=== PATIENT | female | born 1970 | race Hispanic/Latino ===

== ENCOUNTER 2019-04-20 09:59 | Day surgery (SDC) | payer OTHER ==
[2019-04-17 13:49] LABS: Urine Appearance CLEAR; Urine Bilirubin NEGATIVE (NEG); Urine Blood NEGATIVE (NEG); Urine Color YELLOW; Urine Glucose NEGATIVE (NEG); Urine Protein NEGATIVE (NEG); Urine Specific Gravity >=1.030 (1.005-1.030)
[2019-04-17 13:55] LABS: Urine Microscopic Reflex NO UMIC
[2019-04-17 13:57] LABS: Absolute Lymphocytes (CBC) 2.8 K/uL (0.7-4.9); Basophils % 0.5 % (0-1.3); Hematocrit 38.6 % (36.0-45.0); Lymphocytes % 41.5 % (15.3-44.8); MPV 9.5 fL (7.6-11.3); RBC Red Blood Cell Count 4.01 M/uL (3.86-4.86)
[2019-04-17 15:03] LABS: Blood Morphology Comment NOT SEEN (NOT SEEN); Platelet Estimate ADEQ
[2019-04-20 10:15] LABS: Specific Gravity 1.025 (1.005-1.030)
[2019-04-20] MEDS ORDERED: Ringers Lactate 1,000 ML IV ONE ×3 (10:22→16:02)
[2019-04-20] MEDS ORDERED: SCOPOLAMINE HYDROBROMIDE PATCH TD ONE (10:22)
[2019-04-20] MEDS: CEFAZOLIN/SWI 2gm 2 GM/20 ML SYR ONE ×2 (10:58→12:00)
[2019-04-20] MEDS ORDERED: PROPOFOL 200 MG/20 ML VIAL IV ONE (11:11)
[2019-04-20] MEDS ORDERED: FENTANYL CITR 100 MCG/2 ML ONE ×2 (11:11→14:12)
[2019-04-20] MEDS ORDERED: VECURONIUM 10 MG/VIAL IV ONE (11:12)
[2019-04-20] MEDS ORDERED: NS 0.9% VIAL 10 ML ONE ×3 (11:12→14:12)
[2019-04-20] MEDS ORDERED: MIDAZOLAM HCL 2 MG/2 ML INJ ONE (11:12)
[2019-04-20] MEDS ORDERED: LIDOCAINE 2% MPF 5 ML VIAL ONE (11:12)
[2019-04-20] MEDS ORDERED: ONDANSETRON 4 MG/2 ML VIAL ONE (11:18)
[2019-04-20] MEDS ORDERED: BUPIVACAINE 0.25% PF 30 ML VIAL ONE (11:52)
[2019-04-20] MEDS ORDERED: dexAMETHasone 10 MG/ML VIAL ONE (12:28)
[2019-04-20] MEDS ORDERED: MORPHINE 10 MG/ML VIAL ONE (14:12)
[2019-04-20] MEDS ORDERED: KETOROLAC 30 MG/ML INJ ONE (14:48)
[2019-04-20] MEDS ORDERED: GLYCOPYRROLATE 0.2 MG/ML SYR ONE (14:49)
[2019-04-20] MEDS ORDERED: NEOSTIGMINE 1 MG/ML -10 ML VIAL ONE (14:49)
[2019-04-20 15:45] VITALS: O2SAT 97
[2019-04-20] MEDS ORDERED: HYDROCODONE/APAP 5/325 MG TAB ONE (17:09)
[2019-04-20 17:43] VITALS: BP 127/76; TEMP 98.8
--- NOTE | 2019-04-22 05:46 | OP ---
Date of Procedure: 04/20/2019 Surgeon: Lizzie Diop MD Real Estate Professional: Hope Hudson. Preoperative Diagnoses: Menorrhagia, pelvic pain, and right ovarian cyst. Postoperative Diagnoses: Menorrhagia, pelvic pain, right ovarian cyst, and endometriosis. Procedures Performed: Total laparoscopic hysterectomy, bilateral salpingo-oophorectomy, endometriosi s excision, right ureterolysis, cystoscopy. Anesthesia: General endotracheal. Estimated Blood Loss: Minimal 60 mL. Specimens: Right lateral wall periureteric endometriosis, extensive left lateral wall endometriosis near the uterosacral included with the uterine specimen, right 4 cm ovarian cyst, scar adhes ions, no evidence of any tubal dilatation or perforation with foreign body. Her uterus was removed in its entirety and retrieved through the vagina. The Essure devices came wit h the uterine specimen. The distal parts of the tubes were removed separately along with the ovaries and all retrieved through the vagina. Cystoscopy showed strong ureteric jets from both ureteric orifices. No evidence of any trauma to the bladder. The ureter did not appear to have any electrical, mechanical, or thermal injury to it afte r the dissection and ureterolysis. Indications For Procedure: Patient is a 49-year-old lady referred to me by Dr. Gibson for heavy pe riods. She had normal monthly periods until November of 2018. Since then, there has been prolonged bleed ing, spotting for 12 days, and then moderate bleeding for 20 days. In December, she was seen by Dr. Ritchie salgado. Labs and CAT scan were ordered, but patient had not done her CT due to insurance issues. She was treated with Sprintec. Bleeding had stopped. Lasted from January 11 to January 30. Eight days of mod erate flow and then 4 days of heavy flow. Ten plus super tampons per day when the period was heavy a nd there was severe suprapubic pain radiating to right lower back. No history of cyst or fibroids in the past. Patient has surgical history significant for x2, Essure for tubal occlusion for permanent control. On examination, uterus had decreased mobility, size is about 6-8 weeks, and question that it could be adhered to the anterior abdominal wall. Discussed the workup for menorrha madisyn. Her hemoglobin was already done and it was 12.6 with low mean corpuscular hemoglobin level. Th e TSH was 2.0 and FSH was not seen. She could be perimenopausal given her age. Plan was to continue her oral contraceptives. Transvaginal ultrasound was to be done, and sampling of the endometrium to rule out atypia or malignancy was discussed with the patient. She can either just observe without a ny further treatment or proceed with an ablation if there was no pathology. Continuing oral contrace ptives was discussed. Plan was to rule out adnexal masses. Pain was mostly in the right lower quadr ant, which has improved. Due to her overweight status, discussed about the increased risk of Pap and endometrial cancer, so she was scheduled for an ultrasound and then an endometrial sampling procedur e. Her ultrasound showed a fibroid, the largest one 1.8 cm. Both ovaries were well visualized. The right ovary had 4.1 cm simple adnexal mass. Endometrial lining was 9 mm. Given her bleeding histor y, I made sure that hemoglobin was checked, it was 13 g. The urine was negative. Endometrial sampli ng was performed. Endometrial curettings were negative for atypia or malignancy. This was consisten t with secretory endometrium. Then, we discussed about the options with the patient. The patient sa id that she was considering a hysterectomy with removal of the cyst. Discussed about the options of an endometrial ablation and observation since she was having some perimenopausal symptoms in the form of hot flashes. She wanted to proceed with a hysterectomy. Then, recommended recommend cystectomy of the right ovarian mass at the time of ablation. Also discussed removal of bilateral tubes. We di scussed about the contraception and Essure was in place. Oral contraceptives were not needed for thi s patient. If bleeding was to be addressed, then plan was to stop her oral contraceptives. At this time, patient decided removal of Essure if surgery was being done in the form of removal of tubes. 4 cm simple cyst with low risk of malignancy was discussed with the patient. If we were not going to proceed with any surgical options after she thinks, plan was to repeat a 3-month ultrasound. After the patient came back for a decision for surgery, plan was to perform a total laparoscopic hyst erectomy, bilateral salpingectomy, and then removal of the right ovarian mass and possible removal of the right ovary. If there was any indication for removal of both tubes and ovaries, that would be d one as part of the procedure to prevent further recurrent pain or bleeding or surgery. All these wer e discussed with the patient. She had intermittent leakage when she was drinking water and denied we aring pads so there was no reason to do anything about it and then constipation was an intermittent s ymptom, nothing to do about that either. Her FSH level was 5.2, so not close to menopause. Discusse d about removal of the right ovary for sure. The cystectomy cannot be performed with adequate amount of ovarian tissue left. For the excessive periods, talked about the hysterectomy versus ablation, t he benefits and risks of each procedure; and once the patient understood the benefits and risks and n eed for a laparoscopic cystectomy and possible salpingectomy, she decided to proceed with hysterectom y with removal of all these. At this time right before this appointment, we received a letter from [facility] for Essure that her Essure coils have to be preserved and returned to the att orney's office. This is a relatively new development in the care of this patient. She was consented for this procedure to treat her bleeding and pain. The primary goal of this visit and the treatment procedure was not removal of Essure coils. This was an adjunct procedure as hysterectomy was alread y being done since the patient has consented for bilateral salpingectomy for risk reduction of ovaria n cancer and also the presence of pelvic pain. She requested that the coils be preserved for her. After consenting the patient, discussion about bleeding, infection, injury to the bowel, bladder, ure ters was done. She was then consented and taken to the OR. In the preop, we discussed with the patient about the need for postoperative care and rest. All inst ructions on a printed out sheet were given to the patient at the preop appointment. All these were v erbally reviewed with the patient and her , and after consenting them for the procedure especi ally the patient, then she was rolled back. Description Of Procedure: 2 g of Ancef were given. She was placed in a supine fashion on the operat ing table. General anesthesia was given. She was placed in a dorsal lithotomy position. Pelvic exa m performed and consistent with previous exam, 6-8 weeks, anteflexed, right adnexal masses palpable. Abdomen, vulva, vagina, and perineum were prepped and draped in a sterile fashion. Neri was placed to drain the bladder and attached to cysto tubing for retrograde filling and then a large uterine man ipulator was introduced into the uterus, which was a new device that was on the shelf in place of the usual device used, which was the VCare. Once this area was draped after appropriate fixation, then 1 cm incision was made in the periumbilica l area. With the scalpel using the open laparoscopy technique, fascia was incised and tagged on each side with 0 Vicryl sutures. Once the fascia was found, it was opened up. She had an abdominoplasty done by Dr. Snider. This incision was opened up. 0 Vicryl tag sutures were placed on each side. Peritoneum was picked up and incised sharply with Metzenbaum scissors. S-retractors were placed. H asson was introduced. Site of entry was checked, unremarkable. Upper abdominal surfaces were visual ized. Liver appeared to be unremarkable. Omentum appeared to be unremarkable. Upper abdominal surf aces, no endometriosis. Patient was placed in Trendelenburg position. 10 mm suprapubic, 5 mm left l ower quadrant and right lower quadrant ports were placed after 0.25% Marcaine was injected to all sit es. After close inspection of the pelvic and peritoneal cavity, there was extensive endometriotic im plants on the right lateral wall, some on the left lateral wall close to the uterosacral ligament, bu t no other endometriosis was seen. Both tubes were well visualized. The right ovary had a large cys t, but appeared to be simple. Ovarian capsule appeared to be unremarkable. There were dense adhesio ns of the sigmoid colon to the left lateral wall. They were stringy, but dense all the way starting at the level of the uterosacral all along the posteromedial aspect of the pelvic sidewall in relation to the ureter all the way to the level of the pelvic brim. The adhesions of the omentum and sigmoid colon were to the tube on the left side as well as to the sidewall below the level of the natural at tachment of the sigmoid colon. All these adhesions had to be taken down sharply. Then, adhesions to the lateral wall, posterior mesovarium were all taken down sharply. The bowel was from th e lateral wall. Then, the endometriosis was addressed on the right lateral aspect. Peritoneum was s cored all around the endometriotic implants. There was a large implant followed by a satellite of ot her implants surrounding it all along the mid to lower pelvic ureter. So, peritoneum was picked up a nd incised lateral and parallel to the ureter at the level of the pelvic brim between the external il iac and the ureter. The peritoneum was opened up sharply and with the help of the LigaSure by dissec ting from the underlying tissues and cutting all the way to the level of the ureteric tunnel. Once t his was done in the superolateral aspect, then dissection was performed across the peritoneum coverin g the ureter superficially down to the medial and inferior aspect of the ureter. Here, the dissectio n was carried all around the implant going all the way to the level of the base of the uterosacral li gament. Once all the endometriosis was isolated from the lateral aspects, then the ureter was dissec jayleen from the medial leaf of the broad ligament all the way it away. There was periureteri c implant that had to be dissected away from the lymph nodes along the internal iliac artery. At the level of the origin of the uterine artery, this dissection was carried on to pick out the base of th e endometriotic implants so that normal fat could be seen and then these were from the side wall. Then, they were from the ureter as best as I could except a 1.5 cm area right on top of it, but the rest of the implants were all removed from the distal and proximal parts of the urete r, and all the lateral implants were all taken down. Then, the peritoneum over the ureter was trimme d gently with the help of sharp dissection as well as LigaSure as needed and very barely. Once all t he implants were removed en bloc, these were handed out for permanent pathology and sent for patholog ical examination. Then, there were implants on the left side as well that were dissected and left in the uterine specimen as best as they could. Once all the implants were taken, close look at the tub es was done. The tubes appeared to be completely intact. No evidence of any perforation of the Essu re through the tubal lining. The lateral tube was opened up from the lateral mesosalpinx opened up t owards the cornual end of the tube and the tube was dissected along the mesosalpinx all the way to th e level of the uterus and then the utero-ovarian ligament was taken down, and then the peritoneum wit hin the posterior aspect was dissected and space was made to open up in the pedicle. The LigaSure wa s taken at the infundibulopelvic ligament and this was left intact. Once the ovary was detached from the uterus, then dissection was carried anteriorly to take down the bladder adhesions all the way to the right side then posteriorly to the left uterosacral and the implants were included in this speci men by dissecting lateral pushing the ureter laterally and bringing the implant medially. Once all t he implants were removed and with the peritoneum removed as specimen, the anterior broad ligament was opened up. Bladder flap was created by identifying the cup of the uterine manipulator. It was very difficult to find it from the center, so it was approached from both sides. Similar dissection was performed on the opposite side to take down the utero-ovarian ligament, mesosalpinx and tube, round l igament and broad ligament both on the posterior aspect as well as the anterior; and once the specime n was dissected, thus far both vessels were identified and isolated. Bipolar basket tip was used to take down the vessels first, then LigaSure was used to seal and cut first on the right, then on the l eft side, then circumferentially. The vesicovaginal space was entered and opened up and dissected in feriorly about 1.5 cm. In similar fashion, windows were made for the vessels to be taken with the he lp of the LigaSure. Once these were taken down on both sides, cardinal ligaments were taken down and circumferential colpotomy with a monopolar hook blade was performed and specimen pulled out through the vagina. The right tube and ovary were in the distal parts, cauterized and cut, and pulled out th rough the vagina as well for retrieval of specimens; and on the left side, the utero-ovarian ligament was taken down as a pedicle and the specimens along with the distal part of the tube were put out an d pulled out through the vagina. Thorough irrigation and suction were performed. There was excellen t hemostasis all along the vaginal cuff. 0 Vicryl sutures were placed simples stitches at both ends of the angles and 3 [id number] in the middle that were buried. There was excellent hemostasis. Both ureters were well visualized. No evidence of electrical, mechanical, or thermal injury to them . There was excellent urine output as well. The bowel appeared to be completely intact. Then, afte r making sure that thorough irrigation and suction were performed in the pelvic cavity and the pedicl es were hemostatic, all the trocars were removed under direct vision. Marcaine was injected at the s ite of the ports and the umbilical port was also injected and then closed with the help of 0 Vicryl t ag sutures and simple 0 Vicryl stitch in the subcutaneous tissues and 4-0 interrupted Monocryl in all other incisions. 0 [address] was used to place a simple stitch in the suprapubic area to close the ant erior abdominal fascia and then Neri and VCare were removed. Cystoscopy with 17-Yoruba sheath, 30-d egree lens, normal saline was performed. Excellent jets of urine from both ureteric orifices. No ev idence of any trauma to the bladder, the level of the trigone, the area above the trigone, and the do me. Urine was drained out. Vagina was inspected. There was excellent hemostasis and invagination o f the raw edges. Instrument, needle, and sponge counts were done and were correct at the end of the case. The specimens that we retrieved made sure that the Essure devices were present. The Essure de vice on the right side was more visible once the specimen was retrieved that was because the vessel s ealer that sealed the tube opened up and the Essure coil was projecting out through it, but otherwise they were not attempted to be removed as this was not the main goal of the surgery. The main goal o f the surgery was to treat her bleeding and her pain and her pain is explained with her extensive end ometriosis due to which decision was made to remove her left ovary. Thorough irrigation and suction were performed and the pedicles were hemostatic. The bladder was dra pichardo. Instrument, needle, and sponge counts were done and were correct at the end the case. Patient tolerated the procedure well. She is planned to follow up with me in 1 week. The specimen was hand ed out to our pathologist and the phytopathology teacher. My circulating nurse, myself, and Dr. Arroyo were present where the specimens were handed out. No special pictures were available per our facility pr otocol and Pathology's plan was to process specimens according to the policy. SIENNA/BURT Voice ID: [id number] Report ID: [id number]
== END 2019-04-20 18:05 | disposition home or self-care (01) ==
LOC: OR 09:59
PROVIDERS: ATTEND Obstetrics & Gynecology
PROC: 0UT24ZZ Resection of Bilateral Ovaries, Percutaneous Endoscopic Approach (ICD-10-PCS; 2019-04-20)
PROC: 0UT74ZZ Resection of Bilateral Fallopian Tubes, Percutaneous Endoscopic Approach (ICD-10-PCS; 2019-04-20)
PROC: 0TN64ZZ Release Right Ureter, Percutaneous Endoscopic Approach (ICD-10-PCS; 2019-04-20)
PROC: 0DBW4ZZ Excision of Peritoneum, Percutaneous Endoscopic Approach (ICD-10-PCS; 2019-04-20)
PROC: 0UT94ZZ Resection of Uterus, Percutaneous Endoscopic Approach (ICD-10-PCS; principal; 2019-04-20 11:00)
DX: N92.1 Excessive and frequent menstruation with irregular cycle (principal); N83.201 Unspecified ovarian cyst, right side; N80.3 Endometriosis of pelvic peritoneum; K66.0 Peritoneal adhesions (postprocedural) (postinfection); D50.0 Iron deficiency anemia secondary to blood loss (chronic); N95.1 Menopausal and female climacteric states; L68.0 Hirsutism; Z90.49 Acquired absence of other specified parts of digestive tract; Z83.3 Family history of diabetes mellitus
CPT/HCPCS: 85025; 36415; 86900; 86850; 81025; 86901; 88305; 88307; 81003; 58571; 53899; 58662; J2704; J2710; J2250; J3010 ×2; J1100; J0690; J7120 ×3; J2405

== ENCOUNTER 2022-11-27 22:45 | Emergency (ER) | payer OTHER ==
--- OUTSIDE RECORDS SUMMARY | 2022-11-27 22:48 | XMS REPORT | Continuity of Care Document ---
:1970 Author Organization [facility] t Address [address] [place] [address] [address] [place] [address] Care Team Providers Name Role Phone Pcp, Patient Does Not Have A Primary Care Physician [id number] Doctor Unassigned, [place] Attending Clinician Unavailable ROYCE LONDON Attending Clinician Unavailable Wale WISE, Mack Veliz Attending Clinician Payers Payer Name Policy Type Policy Number Effective Date Expiration Date S ource Problems Condition Condition Condition Status Onset Resolution Last Treating Co mments Source Name Details Category Date Date Treatment Clinician Date Painful Painful Disease Active Univers orthopaedi orthopaedi 1-24 [place] y of c hardware [place] [facility] [place] Obesity Obesity Disease Active Univers (BMI (BMI 7-03 ity of 30-39.9) 30-39.9) 00:00: [address] Branch Fracture Fracture Disease Active Unive rs of left of left 6-23 ity of tibial tibial 00:00: [place] plateau plateau [facility] Branch Cholelithi Cholelithi Disease Active U nivers asis with asis with 1-12 ity of cholecysti [place]olecysti [place] [facility] Abdominal Abdominal Disease Active Uni vers bloating bloating 1-12 ity of 00:00: [place] [facility] Branch Breast Breast Disease Active Univers mass, mass, 1-12 ity of right right 00:00: [place] [id number] Medical Branch Encounter Encounter Diagnosis Active C ommon for for Spirit hepatitis hepatitis - CH I C C St screening screening Luke s test for test for Medica l low risk low risk Center patient patient Abnormal Abnormal Diagnosis Active Com mon facial facial Spirit hair hair - [facility] Screening Screening Diagnosis Active C ommon for HIV for HIV Spirit (human (human - [facility] immunodefi [facility] Center Adult Adult Diagnosis Active Common general general Spirit medical medical - [facility] exam exam [facility] Encounter Encounter Diagnosis Active C ommon for for Spirit screening screening - CH I mammogram mammogram for breast for breast [facility] cancer cancer [facility] Thyroid Thyroid Diagnosis Active Commo n disorder disorder Spirit screening screening - [facility] I [facility] Fatigue, Fatigue, Diagnosis Active Com mon unspecifie unspecifie Sp dajuan d type d type - [facility] Encounter Encounter Diagnosis Active C ommon for for Spirit vitamin vitamin - CHI deficiency deficiency St screening screening [facility] Screening Screening Diagnosis Active C ommon for for Spirit cholestero cholestero - [facility] l level l level [facility] Allergies, Adverse Reactions, Alerts Allergy Allergy Status Severity Reaction(s) Onset Inactive Treating Comm ents Source Name Type Date Date Clinician NO KNOWN Drug Active Univers ALLERGIE Class ity of S [facility] Social History Social Habit Start Date Stop Date Quantity Comments Source History [facility] ge of Alcohol Std Medicine Drinks History [facility] ge of Alcohol Binge Medicine History [facility] 2019-08-31 2019-08-31 1 [facility] ge of Alcohol Frequency 00:00:00 00:00:00 Medicin e Alcohol intake 2018-08-11 2018-08-11 Current University of 00:00:00 00:00:00 non-drinker of [facility] alcohol (finding) Branch Tobacco use and 2017-01-15 2017-01-15 Smokeless tobacco Un iversity of exposure 00:00:00 00:00:00 non-user [facility] Sex Ass[birth year] At [birth year] Universit y of 00:00:00 00:00:00 [facility] Smoking Status Start Date Stop Date Source Never smoker [facility] o f Medicine Medications Ordered Filled Start Stop Current Ordering Indication Dosage Frequency Signature Comments Components Source Medication Medication Date Date Medication? Clinician (SIG) Name Name cetirizine, Yes 10mg Take 10 mg [facility] ZYRTEC, 10 2-13 by mouth. Hilaria ege MG tablet 15:36: of 39 Medicin e Naproxen Yes 440mg Take 440 [facility] or Sodium 220 2-13 mg by College MG TABS 15:36: mouth. of 39 Medicin e acetaminoph Yes 1{tbl} Take 1 Tab Delvin en-codeine 2-13 by mouth. Hilaria ege (TYLENOL 15:36: of #3) 300-30 39 Medicin MG per e tablet metronidazo 2018-07 Yes TAKE 1 [facility] or le (FLAGYL) 1-19 TABLET BY Col lege 500 MG 00:00: MOUTH of tablet 00 TWICE A Medicin DAY FOR 7 e DAYS cetirizine Yes 10mg Take 10 mg U nivers (ZYRTEC) 10 8-10 by mouth 2 it y of mg tablet 09:45: (two) [place] 16 times Medical daily. Branch naproxen Yes 440mg Take 440 Univ ers sodium 8-10 mg by ity of (ALEVE) 220 09:45: mouth [place] mg tablet 16 daily. Medical Branch acetaminoph Yes 1{tbl} Take 1 Un gurjit en-codeine 8-10 tablet by ity of 300-30 mg 09:45: [place] 16 bedtime as Medical needed. Branch Immunizations Ordered Filled Immunization Date Status Comments [facility] Immunization Name Name SARS-COV-2 COVID-19 2020-10-17 Completed Unive rsity of PFIZER VACCINE 00:00:00 [facility] SARS-COV-2 COVID-19 2020-09-26 Completed Unive rsity of PFIZER VACCINE 00:00:00 [facility] Vital Signs Vital Name Observation Time Observation Value Comments Source Diastolic blood 2019-08-31 16:48:00 75 mm[Hg] [facility] Medicine Heart rate 2019-08-31 16:48:00 70 /min [facility] Systolic blood 2019-08-31 16:48:00 112 mm[Hg] [facility] Medicine Diastolic blood 2019-08-31 16:48:00 75 mm[Hg] [facility] Medicine Heart rate 2019-08-31 16:48:00 70 /min [facility] Systolic blood 2019-08-31 16:48:00 112 mm[Hg] [facility] pressure Medicine Procedures Procedure Date / Time Performing Clinician Source Performed AUTHORIZATION FOR 2022-07-31 06:01:00 Doctor Unassigned, No Univ [facility] RELEASE OF PHI Name [facility] Plan of Care Planned Activity Planned Date Details Comments Source Future Scheduled ORT - XR HAND LEFT Ordered: [facility] College of Test 3V (CHARGE ONLY) 08/31/2019 Medicine [code = 91830] Future Scheduled MAMMOGRAM ANNUAL [facility] College of Test [code = MAMMOGRAM Medicine ANNUAL] Future Scheduled TETANUS SHOT [facility] Hilaria ege of Test (ADULT) [code = Medicine TETANUS SHOT (ADULT)] Future Scheduled HIV SCREENING [code [facility] College of Test = HIV SCREENING] Medicine Future Scheduled CERVICAL CANCER [facility] C ollege of Test SCREENING 3 YEAR Medicine FOLLOW UP [code = CERVICAL CANCER SCREENING 3 YEAR FOLLOW UP] Future Scheduled FLU VACCINE > 6 [facility] C ollege of Test MONTHS [code = FLU Medicine VACCINE > 6 MONTHS] Encounters Start End Encounter Admission Attending Care Care Encounter Source Date/Time Date/Time Type Type Clinicians Facility Department ID 2022-07-31 2022-07-31 Orders Doctor RAO [id number] Univers 00:00:00 00:00:00 Only Unassigned, MAGALY [id number] ity of [place] [facility] [id number] Ishmael as [id number] [place] [address] Branch 2020-10-17 2020-10-17 Outpatient Hardy LONDON [facility] [id number] Univers 16:00:00 16:00:00 [facility] 2020-09-26 2020-09-26 Outpatient Hardy LONDON [facility] [id number] Univers 17:30:00 17:30:00 [facility] 2019-08-31 2019-08-31 Office Mack Echevarria [id number] [facility] 09:33:01 12:13:39 Visit Jose Alfredo AMBULATOR [id number] College Y [id number] of [id number] [facility] christy 600 e 2019-08-31 2019-08-31 Office Mack Echevarria [id number] 09:33:01 12:13:39 Visit Jose Alfredo AMBULATOR [id number] Y [id number] 2018-04-10 2018-04-10 Outpatient Mike Deshpande [id number] Common 23:08:00 23:08:[address] [facility] 2018-03-15 2018-03-15 Outpatient Mike Deshpande 14 [id number] Common 10:00:00 10:00:[address] [facility] Results This patient has no known results.
[2022-11-27] MEDS ORDERED: dexAMETHasone 10 MG/ML VIAL ONE (23:40)
[2022-11-27] MEDS ORDERED: MORPHINE 2 MG/ML SYR ONE (23:40)
[2022-11-27] MEDS ORDERED: ONDANSETRON 4 MG/2 ML VIAL ONE (23:41)
[2022-11-27 23:48] LABS: Absolute Lymphocytes (CBC) 3.8 K/uL (0.7-4.9); Hematocrit 39.3 % (36.0-45.0); Lymphocytes % 43.3 % (15.3-44.8); MPV 7.6 fL (7.6-11.3); RBC Red Blood Cell Count 4.05 M/uL (3.86-4.86)
[2022-11-28] LABS: Albumin 3.4 g/dL (3.4-5.0); Bilirubin Total 0.2 mg/dL (0.2-1.0); Potassium 3.8 mEq/L (3.5-5.1); Protein, Total 7.6 g/dL (6.4-8.2); Troponin High Sensitivity 3.8 pg/mL (<58.9)
--- NOTE | 2022-11-28 01:33 | EDPHYS ---
Physician Documentation [facility] Name: Charlette Obrien Age: 52 yrs Sex: Female : 1970 Arrival Date: 11/27/2022 Time: 22:45 Bed 13 Private MD: ED Physician Robson Bautista HPI: 11/27 23:46 This 52 yrs old Female presents to ER via Ambulatory with complaints of back rn pain. 23:46 The patient presents with pain that is acute, with no known mechanism of injury. The rn symptoms are located in the right trapezius, right scapular area and right subscapular area. Onset: The symptoms/episode began/occurred yesterday. The pain radiates to the right arm. Associated signs and symptoms: Pertinent negatives: abdominal pain, chest pain, fever, headache, hematuria, urinary retention, vomiting, weakness. Modifying factors: The patient symptoms are alleviated by nothing, the patient symptoms are aggravated by any movement. Severity of symptoms: At their worst the symptoms were moderate, in the emergency department the symptoms are unchanged. The patient has not experienced similar symptoms in the past. The patient has not recently seen a physician. Historical: - Allergies: 23:18 No Known Allergies; pf1 - Home Meds: 23:18 estergon [Active]; pf1 - PMHx: 23:18 fatty liver; pf1 - PSHx: 23:18 Total abdominal hysterectomy; Cholecystectomy; section; tummy tuck; left leg pf1 surgery; - Immunization history:: Adult Immunizations up to date, Last tetanus immunization: < 10 years ago Flu vaccine is up to date. - Social history:: Smoking status: Patient denies any tobacco usage or history of. Patient/guardian denies using alcohol, street drugs. - Family history:: not pertinent. - Hospitalizations: : No recent hospitalization is reported. ROS: 23:46 Constitutional: Negative for fever, chills, and weight loss, Eyes: Negative for injury, rn pain, redness, and discharge, Neck: Negative for injury, and swelling, Cardiovascular: Negative for chest pain, palpitations, and edema, Respiratory: Negative for shortness of breath, cough, wheezing, and pleuritic chest pain, Abdomen/GI: Negative for abdominal pain, nausea, vomiting, diarrhea, and constipation, Back: Negative for injury : Negative for injury, bleeding, discharge, and swelling, MS/Extremity: Negative for injury and deformity, Skin: Negative for injury, rash, and discoloration, Neuro: Negative for headache, weakness, and seizure. Exam: 23:46 Constitutional: This is a well developed, well nourished patient who is awake, alert, rn appears uncomfortable Head/Face: Normocephalic, atraumatic. Neck: Trachea midline, no thyromegaly or masses palpated, and no cervical lymphadenopathy. Supple, full range of motion without nuchal rigidity, or vertebral point tenderness. No Meningismus. Cardiovascular: Regular rate and rhythm. No pulse deficits. Respiratory: No increased work of breathing, no retractions or nasal flaring. Abdomen/GI: Soft, non-tender Back: No spinal tenderness. No costovertebral tenderness. + periscapular soft tissue tenderness without skin changes or fluctuance. Skin: Warm, dry MS/ Extremity: Pulses equal, no cyanosis. Neuro: Awake and alert, GCS 15, oriented to person, place, time, and situation. Cranial nerves II-XII grossly intact. Motor strength 5/5 in all extremities. Sensory grossly intact. 11/28 00:16 ECG was reviewed by the Attending Physician. rn Vital Signs: 11/27 22:53 BP 127 / 84; Pulse 70; Resp 18; Temp 98.6; Pulse Ox 97% on R/A; Weight 90.72 kg; Height pf1 5 ft. 7 in. ; Pain 5/10; 11/28 00:13 BP 114 / 75; Pulse 61; Resp 19; Pulse Ox 97% on R/A; vc1 01:00 BP 114 / 60; Pulse 54; Resp 16; Pulse Ox 97% on R/A; vc1 11/27 22:53 Body Mass Index 31.32 (90.72 kg, 170.18 cm) pf1 11/27 22:53 Pain Scale: Adult pf1 MDM: 11/27 22:51 Patient medically screened. rn 11/28 00:11 ED course: Pt states recently told LFTs and lipase slightly elevated and was told need rn a ct to further characterize. No longer has gallbladder. Does not drink.. 01:28 Differential diagnosis: arthritis, Osteoarthritis ruptured disc, sprain, muscle spasm rn of back, radiculopathy. Data reviewed: vital signs, nurses notes, lab test result(s), radiologic studies, CT scan, plain films, and as a result, I will discharge patient. Care significantly affected by the following chronic conditions: Liver Disease. Counseling: I had a detailed discussion with the patient and/or guardian regarding: the historical points, exam findings, and any diagnostic results supporting the discharge/admit diagnosis, lab results, radiology results, the need for outpatient follow up, to return to the emergency department if symptoms worsen or persist or if there are any questions or concerns that arise at home. Response to treatment: the patient's symptoms have markedly improved after treatment, and as a result, I will discharge patient. Special discussion: I discussed with the patient/guardian in detail that at this point there is no indication for admission to the hospital. It is understood, however, that if the symptoms persist or worsen the patient needs to return immediately for re-evaluation. 11/27 23:03 Order name: CBC with Diff; Complete Time: 00:10 rn 11/27 23:03 Order name: CMP; Complete Time: 00:10 11/27 23:03 Order name: Lipase; Complete Time: 00:10 rn 11/27 23:03 Order name: Troponin High Sensitivity; Complete Time: 00:10 rn 11/27 23:03 Order name: Basic Metabolic Panel rn 11/27 23:03 Order name: XRAY Chest (1 view) rn 11/27 23:03 Order name: CT Chest, Abdomen, Pelvis - W/Contrast rn 11/27 23:03 Order name: EKG; Complete Time: 23:04 rn 11/27 23:03 Order name: IV Saline Lock; Complete Time: 23:30 rn 11/27 23:03 Order name: Labs collected and sent; Complete Time: 23:30 rn 11/27 23:03 Order name: EKG - Nurse/Tech; Complete Time: 23:52 rn 11/27 23:03 Order name: Cardiac monitoring; Complete Time: 23:41 rn 11/27 23:03 Order name: O2 Per Protocol; Complete Time: 23:41 rn 11/27 23:03 Order name: O2 Sat Monitoring; Complete Time: 23:41 rn EC:16 Rate is 58 beats/min. Rhythm is regular. QRS [place] is Normal. AR interval is normal. QRS rn interval is normal. QT interval is normal. No Q waves. T waves are Normal. No ST changes noted. Clinical impression: Sinus bradycardia. Interpreted by me. Reviewed by me. Administered Medications: 11/27 23:41 Drug: morphine IVP or IV 2 mg Route: IVP; Infused Over: 4 mins; Site: right antecubital;vc1 11/28 01:37 Follow up: Response: Pain is decreased vc1 11/27 23:41 Drug: Ondansetron IVP 4 mg Route: IVP; Site: right antecubital; vc1 11/28 01:37 Follow up: Response: Pain is decreased vc1 11/27 23:41 Drug: Decadron - Dexamethasone IVP 10 mg Route: IVP; Site: right antecubital; vc1 11/28 01:36 Follow up: Response: Pain is decreased vc1 Disposition Summary: 11/28/22 01:32 Discharge Ordered Location: Home rn Problem: new rn Symptoms: have improved rn Condition: Stable rn Diagnosis - Muscle spasm of back rn - Fatty (change of) liver, not elsewhere classified rn Followup: rn - With: Private Physician - When: As needed - Reason: Recheck today's complaints, Re-evaluation by your physician Discharge Instructions: - Discharge Summary Sheet rn - Muscle Cramps and Spasms rn - Fatty Liver Disease rn - Back Exercises rn Forms: - Medication Reconciliation Form rn - Thank You Letter rn - Antibiotic internet marketing specialist - Prescription Opioid Use rn Prescriptions: - Cyclobenzaprine 10 mg Oral Tablet - take 1 tablet by ORAL route every 8 hours As needed; 30 tablet; Refills: 0, rn Product Selection Permitted - Tramadol 50 mg Oral Tablet - take 1 tablet by ORAL route every 8 hours as needed; 12 tablet; Refills: 0, rn Product Selection Permitted - Medrol (Michael) 4 mg Oral Tablets, Dose Pack - take 1 tablet by ORAL route as directed - follow package instructions; 1 rn packet; Refills: 0, Product Selection Permitted Signatures: Dispatcher [employer] EDRobson Barba MD MD rn Calcote, Vanessa RN RN vc1 Sara moreira RN RN pf1
--- NOTE | 2022-11-28 01:33 | ER ---
Nurse's Notes [facility] Name: Charlette Obrien Age: 52 yrs Sex: Female : 1970 Arrival Date: 11/27/2022 Time: 22:45 Bed 13 Private MD: Diagnosis: Muscle spasm of back;Fatty (change of) liver, not elsewhere classified Presentation: 11/27 22:53 Chief complaint: Patient states: right shoulder blade pain of 5,onset Wednesday that pf1 radiates to right upper arm with posterior upper right arm numbness. Patient denies any injury. Patient stated took Aleve x 3 tablets at 1 hour ago. 22:53 Coronavirus screen: Vaccine status: Patient reports receiving the 2nd dose of the covid pf1 vaccine. 3 doses of pfizer Client denies travel out of the [place] in the last 14 days. At this time, the client does not indicate any symptoms associated with coronavirus-19. Ebola Screen: Patient negative for fever greater than or equal to 101.5 degrees Fahrenheit, and additional compatible Ebola Virus Disease symptoms. Initial Sepsis Screen: Does the patient meet any 2 criteria? No. Patient's initial sepsis screen is negative. Does the patient have a suspected source of infection? No. Patient's initial sepsis screen is negative. Risk Assessment: Do you want to hurt yourself or someone else? Patient reports no desire to harm self or others. 22:53 Method Of Arrival: Ambulatory pf1 22:53 Acuity: BEVERLY 3 pf1 11/28 00:29 Onset of symptoms was November 25, 2022. vc1 Triage Assessment: 00:12 General: Appears in no apparent distress. uncomfortable, Behavior is calm, cooperative, vc1 appropriate for age. Historical: - Allergies: 11/27 23:18 No Known Allergies; pf1 - Home Meds: 23:18 estergon [Active]; pf1 - PMHx: 23:18 fatty liver; pf1 - PSHx: 23:18 Total abdominal hysterectomy; Cholecystectomy; section; tummy tuck; left leg pf1 surgery; - Immunization history:: Adult Immunizations up to date, Last tetanus immunization: < 10 years ago Flu vaccine is up to date. - Social history:: Smoking status: Patient denies any tobacco usage or history of. Patient/guardian denies using alcohol, street drugs. - Family history:: not pertinent. - Hospitalizations: : No recent hospitalization is reported. Screenin:[address] [facility] ED Fall Risk Assessment (Adult). Abuse screen: Denies threats or abuse. vc1 Nutritional screening: No deficits noted. Tuberculosis screening: No symptoms or risk factors identified. Assessment: 11/28 00:11 Reassessment: No changes from previously documented assessment. Patient is alert, vc1 oriented x 3, equal unlabored respirations, skin warm/dry/pink. Patient states symptoms have improved. Pain: Complains of pain in right arm and right subscapular area and right scapular area and right trapezius. Neuro: Level of Consciousness is awake, alert, obeys commands, Oriented to person, place, time, situation, Appropriate for age. 01:35 Reassessment: Patient and/or family updated on plan of care and expected duration. Pain vc1 level reassessed. Patient is alert, oriented x 3, equal unlabored respirations, skin warm/dry/pink. Patient states feeling better. Vital Signs: 11/27 22:53 BP 127 / 84; Pulse 70; Resp 18; Temp 98.6; Pulse Ox 97% on R/A; Weight 90.72 kg; Height pf1 5 ft. 7 in. ; Pain 5/10; 11/28 00:13 BP 114 / 75; Pulse 61; Resp 19; Pulse Ox 97% on R/A; vc1 01:00 BP 114 / 60; Pulse 54; Resp 16; Pulse Ox 97% on R/A; vc1 11/27 22:53 Body Mass Index 31.32 (90.72 kg, 170.18 cm) pf1 11/27 22:53 Pain Scale: Adult pf1 ED Course: 11/27 22:49 Patient arrived in ED. [id number] 22:50 Robson Bautista MD is Attending Physician. rn 23:17 Triage completed. pf1 23:22 Sushma Birmingham, DOROTHY is Primary Nurse. vc1 23:30 Inserted saline lock: 20 gauge in right antecubital area, using aseptic technique. vc1 Blood collected. 23:41 XRAY Chest (1 view) In Process Unspecified. EDMS 11/28 00:12 Arm band placed on right wrist. vc1 00:30 Patient has correct armband on for positive identification. Bed in low position. Call vc1 light in reach. Client placed on continuous cardiac and pulse oximetry monitoring. NIBP monitoring applied. 00:45 CT Chest, Abdomen, Pelvis - W/Contrast In Process Unspecified. EDMS 01:54 No provider procedures requiring assistance completed. IV discontinued, intact, vc1 bleeding controlled, No redness/swelling at site. Pressure dressing applied. Administered Medications: 11/27 23:41 Drug: morphine IVP or IV 2 mg Route: IVP; Infused Over: 4 mins; Site: right antecubital;vc1 11/28 01:37 Follow up: Response: Pain is decreased vc1 11/27 23:41 Drug: Ondansetron IVP 4 mg Route: IVP; Site: right antecubital; vc1 11/28 01:37 Follow up: Response: Pain is decreased vc1 11/27 23:41 Drug: Decadron - Dexamethasone IVP 10 mg Route: IVP; Site: right antecubital; vc1 11/28 01:36 Follow up: Response: Pain is decreased vc1 Medication: 00:13 VIS not applicable for this client. vc1 Outcome: 01:32 Discharge ordered by . rn 01:54 Discharged to home ambulatory, with significant other. vc1 01:54 Condition: good 01:54 Discharge instructions given to patient, Instructed on discharge instructions, follow up and referral plans. medication usage, Demonstrated understanding of instructions, follow-up care, medications, Prescriptions given X 3. 01:55 Patient left the ED. vc1 Signatures: Dispatcher [employer] EDMS Robson Bautista MD MD rn Jeffries, Jennifer [email or web address] Sushma Birmingham RN RN vc1 Sara moreira RN RN pf1 Corrections: (The following items were deleted from the chart) 11/27 23:17 23:14 Chief complaint: Patient states: right shoulder blade pain of 5,onset Wednesday pf1 that radiates to right upper arm with posterior upper right arm numbness. Patient denies any injury. Patient stated took Aleve x 3 tablets at 1 hour ago. pf1
[2022-11-28 02:06] VITALS: BP 114/60; TEMP 98.6; O2SAT 97
--- NOTE | 2022-11-29 14:45 | EKG ---
Test Date: 2022-11-27 Test Time: 23:47:35 It Professional: TC MEASUREMENT RESULTS: Intervals: Rate: 58 WA: 166 QRSD: 86 QT: 442 QTc: 433 [place]: P: 50 WA: 166 QRS: 22 T: 40 INTERPRETIVE STATEMENTS: Sinus bradycardia Otherwise normal ECG No previous ECG available for comparison Electronically Signed On 11-29-22 14:43:40 CDT by Abdoul Urbina
--- NOTE | 2022-12-01 13:55 | RAD REPORT ---
EXAM DESCRIPTION: CT - Chest Abdomen Pelvis W Cont - 11/28/2022 2:05 am CLINICAL HISTORY: Right chest/back/flank pain. COMPARISON: None. TECHNIQUE: CT of the chest, abdomen, and pelvis was performed following intravenous administration o f iodinated contrast. Oral contrast was not administered. Axial, coronal, and sagittal reconstruction s were created and sent to PACS. This exam was performed according to our departmental dose-optimization program, which includes autom ated exposure control, adjustment of the mA and/or kV according to patient size and/or use of iterati ve reconstruction technique. FINDINGS: Lungs and pleura: No pulmonary consolidation. No pleural effusion. No pneumothorax. Mediastinum and neck: No mediastinal lymphadenopathy identified by CT size criteria. Unremarkable selwyn earance of the thyroid gland. Cardiac: No cardiomegaly or pericardial effusion. No thoracic aortic aneurysm or dissection. Hepatobiliary: No concerning hepatic lesion identified. The portal veins are patent. The gallbladder is surgically absent. No pathologic biliary ductal dilatation. Pancreas: Unremarkable. Spleen: Unremarkable. Gastrointestinal: No evidence of bowel obstruction or perienteric inflammation. The appendix is perry l. Small amount of fecal material in the colon and rectum.. Adrenals: No abnormality identified in either adrenal gland. Renal: No concerning parenchymal abnormality in either kidney. No hydronephrosis or urolithiasis. Bladder/Reproductive: Unremarkable appearance of the urinary bladder by CT technique. Hysterectomy. Vascular/Lymphatics: No lymphadenopathy identified by CT size criteria. Abdominal aorta is normal in caliber. Musculoskeletal: No concerning osseous lesion identified. No acute osseous abnormality identified. Ve rtebral body height and alignment are maintained. Fluid / peritoneum: No significant free fluid. No free intraperitoneal air identified. IMPRESSION: No acute abnormality identified in the chest, abdomen, or pelvis. Electronically signed by: Radha Quijano MD 11/28/2022 1:01 AM CDT Due to temporary technical issues with the PACS/Fluency reporting system, reports are being signed by the in house radiologist without review as a courtesy to ensure prompt reporting. The interpreting r adiologist is fully responsible for the content of the report.
--- NOTE | 2022-12-01 14:11 | RAD REPORT ---
EXAM DESCRIPTION: RAD - Chest Single View - 11/27/2022 11:39 pm CLINICAL HISTORY: 52 years Female right posterior/lateral thoracic pain COMPARISON: None TECHNIQUE: AP view of the chest was obtained. FINDINGS: Cardiac silhouette is mildly enlarged. Central vessels are mildly increased. No infiltrates or effusions. No consolidation. No pneumothorax. IMPRESSION: Mild central congestion. No infiltrates. Electronically signed by: Annita Tom MD 11/27/2022 11:52 PM CDT Due to temporary technical issues with the PACS/Fluency reporting system, reports are being signed by the in house radiologist without review as a courtesy to ensure prompt reporting. The interpreting r adiologist is fully responsible for the content of the report.
== END 2022-11-28 01:55 | disposition home or self-care (01) ==
LOC: ER 22:45
DX: M62.830 Muscle spasm of back (principal); K76.0 Fatty (change of) liver, not elsewhere classified
CPT/HCPCS: 93005; 85025; 36415; 84484; 83690; 80053; 71260; 74177; 71045; 96375; 96374; 99284; Q9967; J1100; J2270; J2405